=== PATIENT | female | born 1950 | race African-American/Black ===

== ENCOUNTER 2017-08-19 17:44 | Inpatient (IN) | payer MEDICARE, MEDICAID ==
[~2017-08-19] VITALS: Ht 147.3 cm; Wt 76.7 kg
[2017-08-19] MEDS ORDERED: LOSA50TA37 PO (18:02)
[2017-08-19] MEDS ORDERED: NITROGLYCERIN 400 MCG/SUBLINGUAL SPRAY 4.9 GM BOTTLE SL ONE (18:30)
[2017-08-19] MEDS ORDERED: NITROGLYCERIN 2% (1 GM=INCH) PACKET TP ONE (18:30)
[2017-08-19] MEDS: BUMETANIDE 0.25 MG/ML 4 ML VIAL IVP ONE ×2 (18:35→19:15)
[2017-08-19] MEDS: ASPIRIN 81 MG CHEWABLE TABLET PO ONE ×2 (18:35→19:15)
[2017-08-19] MEDS ORDERED: LORazepam 2 MG/ML VIAL ONE (18:42)
[2017-08-19] MEDS ORDERED: IPRATROPIUM BROMIDE 0.5 MG/2.5 ML NEB SOLUTION NEB ONE (18:45)
[2017-08-19] MEDS ORDERED: ALBUTEROL SULFATE 2.5 MG/0.5 ML NEB SOLUTION NEB ONE (18:45)
[2017-08-19] MEDS ORDERED: LORazepam 2 MG/ML VIAL IVP ONE (19:00)
[2017-08-19 19:13] LABS: ABG A-A DIFF O2 251.7 mmHg (10-20.0); ABG CARBOXYHEMOGLOBIN 0.5 % (0.0-1.5); ABG HCO3 20.3 mmol/L (22.0-26.0); ABG METHEMOGLOBIN 0.5 % (0.0-1.5); ABG OXYGEN CONTENT 18.6 mL/dL (15.0-23.0); ABG OXYGEN SATURATION 99.8 % (95.0-98.0); ABG OXYHEMOGLOBIN 98.8 % (94.0-100.0); ABG PCO2 49 mmHg (35-45); ABG PH 7.268 (7.35-7.450); ABG TOTAL HEMOGLOBIN 12.6 G/dL (12.0-18.0); PO2, ARTERIAL BG 413.7 mmHg (79.0-87.0); SOURCE, BLOOD GAS ARTERIAL; TEMPERATURE, FAHRENHEIT, BG 97.5 FAHREN (96.0-98.6)
[2017-08-19] MEDS: PROPOFOL 1000 MG/ISO-OSM 100 ML IV PRN ×2 (19:28→22:55)
[2017-08-19 19:34] LABS: SITE, BLOOD GAS RT RADIAL
[2017-08-19 19:35] LABS: PEEP,BG 5 cm H2O; SPONTANEOUS VT, BG 486 ml; VT, ABG 500 ml
[2017-08-19 19:43] LABS: BASOPHILS % (AUTO) 0.5 % (0.0-2.0); EOSINOPHILS % (AUTO) 0.5 % (1.0-6.0); HEMOGLOBIN 11.8 g/dL (12.0-16.0); LYMPHOCYTES # (AUTO) 1.2 K/uL (1.0-4.8); LYMPHOCYTES % (AUTO) 14.7 % (22.0-44.0); MEAN CORPUSCULAR HEMOGLOBIN 29.4 pg (26.0-34.0); MEAN CORPUSCULAR HGB CONC 32.8 G/dL (31.0-37.0); MEAN CORPUSCULAR VOLUME 90 fL (80-100); MONOCYTES # (AUTO) 0.2 K/uL (0.1-1.0); MONOCYTES % (AUTO) 2.7 % (2.0-9.0); NEUTROPHILS # (AUTO) 6.6 K/uL (1.8-7.7); NEUTROPHILS % (AUTO) 81.6 % (40.0-70.0); PLATELET COUNT (AUTO) 164 K/uL (150-450); RED BLOOD CELL COUNT(AUTO) 4.02 MIL/uL (4.00-5.20); RED CELL DISTRIBUTION WIDTH 15.3 % (11.5-14.5)
[2017-08-19 20:05] LABS: ANION GAP 10 mmol/L (8-16); CARBON DIOXIDE 28 mmol/L (22-29); CHLORIDE 104 mmol/L (98-107); CREATININE 0.91 mg/dL (0.60-1.30); GLOMERULAR FILTR. RATE CALC > 60 mL/min (>60); GLUCOSE,RANDOM 205 mg/dL (70-110); POTASSIUM 3.5 mmol/L (3.5-5.1); SODIUM SERUM 142 mmol/L (136-145); UREA NITROGEN, BLOOD 14 mg/dL (7-18)
[2017-08-19 20:09] LABS: B-TYPE NATRIURETIC PEPTIDE 623 pg/mL (0-100)
[2017-08-19] MEDS ORDERED: BUMETANIDE 0.25 MG/ML 4 ML VIAL IVP ONE (20:15)
[2017-08-19] MEDS ORDERED: MIDAZOLAM HCL 100 MG in DEXTROSE 5%-WATER 180 ML IV PRN ×2 (20:27→22:08)
[2017-08-19 20:30] LABS: ALANINE AMINOTRANSFERASE 37 U/L (12-78); ALBUMIN 3.8 g/dL (3.4-5.0); ALKALINE PHOSPHATASE 62 U/L (46-116); ASPARTATE AMINOTRANSFERASE 30 U/L (15-37); BILIRUBIN,TOTAL 0.9 mg/dL (0.1-1.0); CREATINE KINASE MB 3.1 ng/mL (0-5); CREATINE KINASE, TOTAL 177 U/L (26-192); TOTAL PROTEIN, SERUM 7.7 g/dL (6.4-8.2)
[2017-08-19] MEDS ORDERED: SODIUM CHLORIDE 0.9% 100 ML ONE (20:33)
[2017-08-19] MEDS ORDERED: IOVERSOL 350 MG/ML 100 ML VIAL ONE (20:33)
[2017-08-19] MEDS ORDERED: MIDAZOLAM HCL 5 MG/ML VIAL IVP ONE (20:45)
[2017-08-19 21:53] LABS: APPEARANCE,URINE TURBID (CLEAR); BILIRUBIN,URINE NEGATIVE (NEGATIVE); GLUCOSE, URINE (UA) NEGATIVE (NEGATIVE); KETONES,URINE NEGATIVE (NEGATIVE); LEUKOCYTE ESTERASE ,URINE TRACE (NEGATIVE); NITRATE,URINE POSITIVE (NEGATIVE); OCCULT BLOOD,URINE LARGE (NEGATIVE); PROTEIN,URINE SEE CONFIRM (NEGATIVE); UROBILINOGEN,URINE 0.2 mg/dL (<=1.0)
[2017-08-19 22:30] VITALS: BP 157/101
[2017-08-19] MEDS ORDERED: BISACODYL 10 MG RECTAL RECTAL SUPPOSITORY PR PRN (22:30)
[2017-08-19] MEDS ORDERED: ONDANSETRON HCL 4 MG/2 ML VIAL IVP PRN (22:30)
[2017-08-19] MEDS ORDERED: 0.9% SODIUM CHLORIDE 10 ML SYRINGE IVP PRN (22:30)
[2017-08-19 22:45] LABS: SULFOSALICYLIC ACID,URINE 4+ (Negative)
[2017-08-19 22:46] LABS: BACTERIA,URINE Moderate /HPF (None Seen)
[2017-08-19 22:47] LABS: AMORPHOUS SEDIMENT,UR Many /LPF (None Seen); HYALINE CASTS, URINE 0-2 /LPF (None Seen); SQUAMOUS EPITHELIAL CELL,UR Moderate /LPF (None Seen)
[2017-08-19 22:48] LABS: MUCUS,URINE Many LPF (None Seen)
[2017-08-19] MEDS: AZITHROMYCIN 500 MG/NS 250 ML IV SCH (22:56)
[2017-08-19] MEDS: CefTRIAXone SODIUM 1 GM in DEXTROSE 5%-WATER 10 ML IV SCH (22:56)
[2017-08-19] MEDS: HEPARIN SODIUM,PORCINE 5,000 UNITS/ML VIAL SQ SCH (22:58)
[2017-08-19] MEDS ORDERED: SODIUM CHLORIDE 0.9% 250 ML IV ONE (22:59)
[2017-08-19 23:32] LABS: SALICYLATE < 2.8 mg/dL (2.8-20.0)
[2017-08-20] VITALS: BP 120/86
[2017-08-20 01:01] LABS: AMPHET/METH SCREEN,URINE NEGATIVE (NEGATIVE); BARBITURATE SCREEN, URINE NEGATIVE (NEGATIVE); BENZODIAZEPINES SCREEN,URINE NEGATIVE (NEGATIVE); CANNABINOID SCREEN,URINE NEGATIVE (NEGATIVE); COCAINE SCREEN,URINE NEGATIVE (NEGATIVE); METHADONE SCREEN, URINE NEGATIVE (NEGATIVE); OPIATE SCREEN,URINE NEGATIVE (NEGATIVE)
[2017-08-20 01:06] LABS: PHENCYCLIDINE SCREEN,URINE NEGATIVE (NEGATIVE)
[2017-08-20] MEDS: PROPOFOL 1000 MG/ISO-OSM 100 ML IV PRN ×5 (02:36→22:52)
[2017-08-20 04:00] VITALS: BP 132/86
[2017-08-20 05:36] LABS: HEMOGLOBIN A1C 5.2 % (4.5-6.2)
[2017-08-20 06:01] LABS: BASOPHILS % (AUTO) 0.4 % (0.0-2.0); HEMATOCRIT 34.4 % (36-46); HEMOGLOBIN 11.5 g/dL (12.0-16.0); LYMPHOCYTES # (AUTO) 2.2 K/uL (1.0-4.8); LYMPHOCYTES % (AUTO) 27.8 % (22.0-44.0); MEAN CORPUSCULAR HEMOGLOBIN 29.6 pg (26.0-34.0); MEAN CORPUSCULAR HGB CONC 33.4 G/dL (31.0-37.0); MEAN CORPUSCULAR VOLUME 89 fL (80-100); MONOCYTES # (AUTO) 0.4 K/uL (0.1-1.0); MONOCYTES % (AUTO) 5.6 % (2.0-9.0); NEUTROPHILS # (AUTO) 5.1 K/uL (1.8-7.7); NEUTROPHILS % (AUTO) 65.2 % (40.0-70.0); PLATELET COUNT (AUTO) 166 K/uL (150-450); RED BLOOD CELL COUNT(AUTO) 3.88 MIL/uL (4.00-5.20); RED CELL DISTRIBUTION WIDTH 15.2 % (11.5-14.5)
[2017-08-20 06:02] LABS: ALANINE AMINOTRANSFERASE 33 U/L (12-78); ALBUMIN 3.6 g/dL (3.4-5.0); ALKALINE PHOSPHATASE 59 U/L (46-116); ANION GAP 13 mmol/L (8-16); ASPARTATE AMINOTRANSFERASE 29 U/L (15-37); BILIRUBIN,TOTAL 0.9 mg/dL (0.1-1.0); CALCIUM, TOTAL 8.8 mg/dL (8.8-10.5); CARBON DIOXIDE 25 mmol/L (22-29); CHLORIDE 105 mmol/L (98-107); CHOL/HDL RATIO 3.4 (3.9-5.7); CHOLESTEROL 190 mg/dL (131-200); CREATININE 0.66 mg/dL (0.60-1.30); GLOMERULAR FILTR. RATE CALC > 60 mL/min (>60); GLUCOSE,RANDOM 98 mg/dL (70-110); HDL CHOLESTEROL 56 mg/dL (40-60); LDL CHOL (CALC.) 113 mg/dL (0-130); PHOSPHORUS 3.1 mg/dL (2.5-4.9); POTASSIUM 3.1 mmol/L (3.5-5.1); SODIUM SERUM 143 mmol/L (136-145); TOTAL PROTEIN, SERUM 7.3 g/dL (6.4-8.2); TRIGLYCERIDES 104 mg/dL (15-150); UREA NITROGEN, BLOOD 13 mg/dL (7-18)
[2017-08-20 08:00] VITALS: BP 169/114
[2017-08-20] MEDS ORDERED: POTASSIUM CHLORIDE 20 MEQ ER TABLET PO PRN (08:15)
[2017-08-20] MEDS: POTASSIUM CHL 10 MEQ/WATER 50 ML IV PRN ×3 (08:37→12:57)
[2017-08-20] MEDS: PANTOPRAZOLE SODIUM 40 MG/VIAL IVP SCH (08:37)
[2017-08-20] MEDS: FUROSEMIDE 20 MG/2 ML VIAL IVP SCH ×2 (08:38→20:08)
[2017-08-20] MEDS: HEPARIN SODIUM,PORCINE 5,000 UNITS/ML VIAL SQ SCH ×2 (08:38→20:09)
[2017-08-20] MEDS: ASPIRIN 81 MG CHEWABLE TABLET PO SCH (08:38)
[2017-08-20 09:24] LABS: ABG A-A DIFF O2 138.7 mmHg (10-20.0); ABG CARBOXYHEMOGLOBIN 0.7 % (0.0-1.5); ABG HCO3 27.4 mmol/L (22.0-26.0); ABG METHEMOGLOBIN 0.3 % (0.0-1.5); ABG OXYGEN CONTENT 17.8 mL/dL (15.0-23.0); ABG OXYGEN SATURATION 98.4 % (95.0-98.0); ABG OXYHEMOGLOBIN 97.4 % (94.0-100.0); ABG PCO2 35 mmHg (35-45); ABG PH 7.492 (7.35-7.450); ABG TOTAL HEMOGLOBIN 12.9 G/dL (12.0-18.0); SITE, BLOOD GAS RT RADIAL; SOURCE, BLOOD GAS ARTERIAL; TEMPERATURE, FAHRENHEIT, BG 98.6 FAHREN (96.0-98.6)
[2017-08-20 09:25] LABS: O2 DEVICE,BLOOD GAS VENTILATOR (ROOM AIR); PEEP,BG 5 cm H2O; VT, ABG 500 ml
[2017-08-20] MEDS: LOSARTAN POTASSIUM 50 MG TABLET PO SCH (10:07)
[2017-08-20 12:00] VITALS: BP 170/115
[2017-08-20] MEDS ORDERED: METOPROLOL TARTRATE 25 MG TABLET PO SCH (13:15)
[2017-08-20] MEDS: HydrALAZINE HCL 20 MG/ML VIAL IVP PRN (13:53)
[2017-08-20 16:00] VITALS: BP 142/96
[2017-08-20] MEDS ORDERED: ETOMIDATE 2 MG/ML 10 ML VIAL IVP ONE (17:59)
[2017-08-20] MEDS ORDERED: SUCCINYLCHOLINE CHLORIDE 20 MG/ML 10 ML VIAL IVP ONE (17:59)
[2017-08-20 20:00] VITALS: BP 143/92
[2017-08-20] MEDS ORDERED: SODIUM CHLORIDE 0.9% 250 ML IV ONE (20:07)
[2017-08-20] MEDS: ACETAMINOPHEN 325 MG TABLET PO PRN (20:09)
[2017-08-20] MEDS: CARVEDILOL 12.5 MG TABLET PO SCH (20:09)
[2017-08-20] MEDS: CefTRIAXone SODIUM 1 GM in DEXTROSE 5%-WATER 10 ML IV SCH (23:18)
[2017-08-20] MEDS: AZITHROMYCIN 500 MG/NS 250 ML IV SCH (23:18)
[2017-08-21] VITALS (8 sets, daily range): BP systolic 106–165; BP diastolic 73–98
[2017-08-21] MEDS: ACETAMINOPHEN 325 MG TABLET PO PRN ×2 (00:36→17:40)
[2017-08-21] MEDS: PROPOFOL 1000 MG/ISO-OSM 100 ML IV PRN ×2 (03:36→08:08)
[2017-08-21 05:22] LABS: BASOPHILS % (AUTO) 0.4 % (0.0-2.0); EOSINOPHILS % (AUTO) 0.4 % (1.0-6.0); HEMATOCRIT 39.2 % (36-46); HEMOGLOBIN 12.9 g/dL (12.0-16.0); LYMPHOCYTES # (AUTO) 1.3 K/uL (1.0-4.8); MEAN CORPUSCULAR HEMOGLOBIN 29.3 pg (26.0-34.0); MEAN CORPUSCULAR VOLUME 89 fL (80-100); NEUTROPHILS # (AUTO) 8.6 K/uL (1.8-7.7); NEUTROPHILS % (AUTO) 78.2 % (40.0-70.0); RED BLOOD CELL COUNT(AUTO) 4.42 MIL/uL (4.00-5.20); RED CELL DISTRIBUTION WIDTH 15.5 % (11.5-14.5)
[2017-08-21 05:41] LABS: ALANINE AMINOTRANSFERASE 27 U/L (12-78); ALBUMIN 3.8 g/dL (3.4-5.0); ALKALINE PHOSPHATASE 63 U/L (46-116); ANION GAP 12 mmol/L (8-16); ASPARTATE AMINOTRANSFERASE 28 U/L (15-37); BILIRUBIN,TOTAL 1.1 mg/dL (0.1-1.0); CARBON DIOXIDE 27 mmol/L (22-29); CHLORIDE 103 mmol/L (98-107); GLOMERULAR FILTR. RATE CALC > 60 mL/min (>60); GLUCOSE,RANDOM 133 mg/dL (70-110); POTASSIUM 3.5 mmol/L (3.5-5.1); SODIUM SERUM 142 mmol/L (136-145); TOTAL PROTEIN, SERUM 7.6 g/dL (6.4-8.2); UREA NITROGEN, BLOOD 17 mg/dL (7-18)
[2017-08-21] MEDS: POTASSIUM CHL 10 MEQ/WATER 50 ML IV PRN ×3 (06:15→10:14)
[2017-08-21] MEDS ORDERED: HALOPERIDOL LACTATE 5 MG/ML VIAL IVP PRN (06:45)
[2017-08-21 07:24] LABS: PLATELET COUNT (AUTO) 126 K/uL (150-450)
[2017-08-21] MEDS: FUROSEMIDE 20 MG/2 ML VIAL IVP SCH ×2 (08:09→21:00)
[2017-08-21] MEDS: LOSARTAN POTASSIUM 50 MG TABLET PO SCH (08:09)
[2017-08-21] MEDS: HEPARIN SODIUM,PORCINE 5,000 UNITS/ML VIAL SQ SCH ×2 (08:09→20:59)
[2017-08-21] MEDS: PANTOPRAZOLE SODIUM 40 MG/VIAL IVP SCH (08:09)
[2017-08-21] MEDS: CARVEDILOL 12.5 MG TABLET PO SCH ×2 (08:09→20:59)
[2017-08-21] MEDS: ASPIRIN 81 MG CHEWABLE TABLET PO SCH (08:09)
[2017-08-21 12:19] LABS: ABG A-A DIFF O2 117.8 mmHg (10-20.0); ABG HCO3 25.5 mmol/L (22.0-26.0); ABG METHEMOGLOBIN 0.4 % (0.0-1.5); ABG OXYGEN CONTENT 16.8 mL/dL (15.0-23.0); ABG OXYGEN SATURATION 96.5 % (95.0-98.0); ABG OXYHEMOGLOBIN 95.1 % (94.0-100.0); ABG PCO2 38 mmHg (35-45); ABG PH 7.436 (7.35-7.450); ABG TOTAL HEMOGLOBIN 12.5 G/dL (12.0-18.0); SOURCE, BLOOD GAS ARTERIAL; TEMPERATURE, FAHRENHEIT, BG 98.9 FAHREN (96.0-98.6)
[2017-08-21 12:20] LABS: CPAP, BG 5 cm H2O; O2 DEVICE,BLOOD GAS VENTILATOR (ROOM AIR); PRESSURE SUPPORT, BG 8 cm H2O; SITE, BLOOD GAS RT RADIAL; VENT MODE, BG CPAP (ROOM AIR)
[2017-08-21 15:42] LABS: ABG A-A DIFF O2 143.1 mmHg (10-20.0); ABG BASE EXCESS 2.4 mmol/L (-2.0-3.0); ABG CARBOXYHEMOGLOBIN 1.1 % (0.0-1.5); ABG HCO3 26.4 mmol/L (22.0-26.0); ABG METHEMOGLOBIN 0.4 % (0.0-1.5); ABG OXYGEN CONTENT 16.3 mL/dL (15.0-23.0); ABG OXYHEMOGLOBIN 91.6 % (94.0-100.0); ABG PCO2 41 mmHg (35-45); ABG PH 7.432 (7.35-7.450); ABG TOTAL HEMOGLOBIN 12.6 G/dL (12.0-18.0); SOURCE, BLOOD GAS ARTERIAL; TEMPERATURE, FAHRENHEIT, BG 98.6 FAHREN (96.0-98.6)
[2017-08-21 15:43] LABS: O2 DEVICE,BLOOD GAS CANNULA (ROOM AIR); SITE, BLOOD GAS RT RADIAL
[2017-08-21] MEDS: IPRATROPIUM BROMIDE 0.5 MG/2.5 ML NEB SOLUTION NEB PRN (20:10)
[2017-08-21] MEDS: ALBUTEROL SULFATE 2.5 MG/0.5 ML NEB SOLUTION NEB PRN (20:10)
[2017-08-21] MEDS: CefTRIAXone SODIUM 1 GM in DEXTROSE 5%-WATER 10 ML IV SCH (22:47)
[2017-08-21 23:22] LABS: GLUCOSE,POINT OF CARE 152 MG/DL (70-110)
[2017-08-21] MEDS ORDERED: SODIUM CHLORIDE 0.9% 250 ML IV ONE (23:32)
[2017-08-21] MEDS: AZITHROMYCIN 500 MG/NS 250 ML IV SCH (23:44)
[2017-08-22] VITALS: BP 134/81
[2017-08-22 04:00] VITALS: BP 132/80
[2017-08-22 06:36] LABS: HEMATOCRIT 34.7 % (36-46); HEMOGLOBIN 11.3 g/dL (12.0-16.0); MEAN CORPUSCULAR HEMOGLOBIN 29.2 pg (26.0-34.0); MEAN CORPUSCULAR HGB CONC 32.7 G/dL (31.0-37.0); MEAN CORPUSCULAR VOLUME 89 fL (80-100); PLATELET COUNT (AUTO) 137 K/uL (150-450); RED BLOOD CELL COUNT(AUTO) 3.88 MIL/uL (4.00-5.20); RED CELL DISTRIBUTION WIDTH 15.5 % (11.5-14.5)
[2017-08-22 06:55] LABS: ANION GAP 11 mmol/L (8-16); CALCIUM, TOTAL 9.3 mg/dL (8.8-10.5); CARBON DIOXIDE 27 mmol/L (22-29); CHLORIDE 105 mmol/L (98-107); CREATININE 0.78 mg/dL (0.60-1.30); GLOMERULAR FILTR. RATE CALC > 60 mL/min (>60); GLUCOSE,RANDOM 134 mg/dL (70-110); POTASSIUM 3.4 mmol/L (3.5-5.1); SODIUM SERUM 143 mmol/L (136-145); UREA NITROGEN, BLOOD 20 mg/dL (7-18)
[2017-08-22] MEDS: HydrALAZINE HCL 20 MG/ML VIAL IVP PRN (07:19)
[2017-08-22] MEDS: POTASSIUM CHL 10 MEQ/WATER 50 ML IV PRN (07:19)
[2017-08-22] MEDS ORDERED: POTASSIUM CHLORIDE 10% 40 MEQ/30 ML LIQUID UDCUP PO PRN (08:30)
[2017-08-22] MEDS ORDERED: POTASSIUM CHLORIDE 10% 40 MEQ/30 ML LIQUID UDCUP NG PRN (08:30)
[2017-08-22 08:52] LABS: BAND NEUTROPHILS % (MANUAL) 1 % (0-5); LYMPHOCYTES % (MANUAL) 19 % (22-44); MONOCYTES % (MANUAL) 6 % (2-9); SEGMENTED NEUTROPHILS % 74 % (40-70)
[2017-08-22] MEDS: FUROSEMIDE 20 MG/2 ML VIAL IVP SCH ×2 (09:05→20:23)
[2017-08-22] MEDS: PANTOPRAZOLE SODIUM 40 MG/VIAL IVP SCH (09:05)
[2017-08-22] MEDS: ASPIRIN 81 MG CHEWABLE TABLET PO SCH (09:06)
[2017-08-22] MEDS: CARVEDILOL 12.5 MG TABLET PO SCH ×2 (09:06→20:24)
[2017-08-22] MEDS: HEPARIN SODIUM,PORCINE 5,000 UNITS/ML VIAL SQ SCH ×2 (09:07→20:25)
[2017-08-22] MEDS: LOSARTAN POTASSIUM 50 MG TABLET PO SCH (09:07)
[2017-08-22 14:03] VITALS: BP 151/90
[2017-08-22 15:23] VITALS: BP 149/92
[2017-08-22] MEDS: ALBUTEROL SULFATE 2.5 MG/0.5 ML NEB SOLUTION NEB PRN ×2 (16:22→19:00)
[2017-08-22] MEDS: IPRATROPIUM BROMIDE 0.5 MG/2.5 ML NEB SOLUTION NEB PRN ×2 (16:22→19:00)
[2017-08-22 19:31] VITALS: BP 143/89
[2017-08-22] MEDS: CefTRIAXone SODIUM 1 GM in DEXTROSE 5%-WATER 10 ML IV SCH (23:57)
[2017-08-23] MEDS ORDERED: 0.9% SODIUM CHLORIDE 5 ML NEB SOLUTION NEB ONE
[2017-08-23] MEDS: AZITHROMYCIN 500 MG/NS 250 ML IV SCH (00:03)
[2017-08-23] MEDS: ALBUTEROL SULFATE 2.5 MG/0.5 ML NEB SOLUTION NEB PRN (00:06)
[2017-08-23] MEDS: IPRATROPIUM BROMIDE 0.5 MG/2.5 ML NEB SOLUTION NEB PRN (00:07)
[2017-08-23 00:16] VITALS: BP 132/76
[2017-08-23 05:00] VITALS: BP 137/88
[2017-08-23 07:15] VITALS: BP 141/77
[2017-08-23] MEDS: ASPIRIN 81 MG CHEWABLE TABLET PO SCH (09:01)
[2017-08-23] MEDS: CARVEDILOL 12.5 MG TABLET PO SCH ×2 (09:01→20:08)
[2017-08-23] MEDS: HEPARIN SODIUM,PORCINE 5,000 UNITS/ML VIAL SQ SCH ×2 (09:01→20:09)
[2017-08-23] MEDS: PANTOPRAZOLE SODIUM 40 MG/VIAL IVP SCH (09:02)
[2017-08-23] MEDS: FUROSEMIDE 20 MG/2 ML VIAL IVP SCH ×2 (09:02→20:09)
[2017-08-23 10:23] LABS: LEGIONELLA PNEUMO AG URINE Negative (Negative); ORGANISM ID Not indicated.; S PNEUMO SOURCE Urine; STREP PNEUMONIAE AG URINE Negative (Negative); STREP.PNEUMO BODY FLUID CULT. Not Indicated
[2017-08-23] MEDS: LOSARTAN POTASSIUM 50 MG TABLET PO SCH (10:59)
[2017-08-23 11:48] VITALS: BP 113/72
[2017-08-23 19:55] VITALS: BP 126/73
[2017-08-24] VITALS (7 sets, daily range): BP systolic 114–139; BP diastolic 59–82
[2017-08-24] MEDS: CefTRIAXone SODIUM 1 GM in DEXTROSE 5%-WATER 10 ML IV SCH (00:25)
[2017-08-24] MEDS: AZITHROMYCIN 500 MG/NS 250 ML IV SCH (00:26)
[2017-08-24] MEDS: ASPIRIN 81 MG CHEWABLE TABLET PO SCH (08:28)
[2017-08-24] MEDS: FUROSEMIDE 20 MG/2 ML VIAL IVP SCH ×2 (08:29→22:01)
[2017-08-24] MEDS: CARVEDILOL 12.5 MG TABLET PO SCH ×2 (08:29→22:01)
[2017-08-24] MEDS: PANTOPRAZOLE SODIUM 40 MG/VIAL IVP SCH (08:29)
[2017-08-24] MEDS: HEPARIN SODIUM,PORCINE 5,000 UNITS/ML VIAL SQ SCH ×2 (08:29→22:00)
[2017-08-24] MEDS: LOSARTAN POTASSIUM 50 MG TABLET PO SCH (10:12)
[2017-08-25] VITALS (15 sets, daily range): BP systolic 123–184; BP diastolic 66–102
[2017-08-25 06:50] LABS: BASOPHILS % (AUTO) 0.8 % (0.0-2.0); EOSINOPHILS % (AUTO) 2.1 % (1.0-6.0); HEMATOCRIT 31.4 % (36-46); HEMOGLOBIN 10.1 g/dL (12.0-16.0); LYMPHOCYTES # (AUTO) 1.9 K/uL (1.0-4.8); MEAN CORPUSCULAR HEMOGLOBIN 28.8 pg (26.0-34.0); MEAN CORPUSCULAR HGB CONC 32.2 G/dL (31.0-37.0); MEAN CORPUSCULAR VOLUME 89 fL (80-100); MONOCYTES # (AUTO) 0.8 K/uL (0.1-1.0); MONOCYTES % (AUTO) 8.6 % (2.0-9.0); NEUTROPHILS # (AUTO) 5.8 K/uL (1.8-7.7); NEUTROPHILS % (AUTO) 66.5 % (40.0-70.0); PLATELET COUNT (AUTO) 177 K/uL (150-450); RED BLOOD CELL COUNT(AUTO) 3.52 MIL/uL (4.00-5.20); RED CELL DISTRIBUTION WIDTH 15.3 % (11.5-14.5)
[2017-08-25 06:56] LABS: PROTHROMBIN TIME 10.3 SEC (9.4-11.6)
[2017-08-25 06:59] LABS: ANION GAP 7 mmol/L (8-16); CARBON DIOXIDE 31 mmol/L (22-29); CHLORIDE 103 mmol/L (98-107); GLOMERULAR FILTR. RATE CALC > 60 mL/min (>60); GLUCOSE,RANDOM 108 mg/dL (70-110); POTASSIUM 3.5 mmol/L (3.5-5.1); SODIUM SERUM 141 mmol/L (136-145); UREA NITROGEN, BLOOD 29 mg/dL (7-18)
[2017-08-25] MEDS ORDERED: DEXTROSE 5%-0.45% SODIUM CHL 1,000 ML IV ONE (08:15)
[2017-08-25] MEDS: HEPARIN SODIUM,PORCINE 5,000 UNITS/ML VIAL SQ SCH ×2 (09:00→21:22)
[2017-08-25] MEDS ORDERED: LIDOCAINE HCL/PF 1% 30 ML VIAL ONE (12:13)
[2017-08-25] MEDS ORDERED: SODIUM BICARBONATE 50 MEQ/50 ML VIAL ONE (12:13)
[2017-08-25] MEDS ORDERED: IOHEXOL 300 MG/ML 150 ML VIAL ONE (12:13)
[2017-08-25] MEDS ORDERED: FentaNYL CITRATE-PF 100 MCG/2 ML VIAL ONE (12:39)
[2017-08-25] MEDS ORDERED: MIDAZOLAM HCL 2 MG/2 ML VIAL ONE (12:40)
[2017-08-25] MEDS ORDERED: VERAPAMIL HCL 2.5 MG/ML 2 ML VIAL ONE (12:40)
[2017-08-25] MEDS ORDERED: NITROGLYCERIN 50 MG/D5% WATER 0 ML ONE (12:40)
[2017-08-25] MEDS ORDERED: 0.9% SODIUM CHLORIDE 10 ML SYRINGE IVP ONE (12:41)
[2017-08-25] MEDS ORDERED: IOHEXOL 300 MG/ML 100 ML VIAL ONE (12:43)
[2017-08-25] MEDS ORDERED: SODIUM CHLORIDE 0.9% 500 ML IV ONE (13:00)
[2017-08-25] MEDS ORDERED: LIDOCAINE 1% 30 ML/SOD BICARB 8.4% 4 ML SQ ONE (13:03)
[2017-08-25] MEDS ORDERED: HEPARIN SODIUM 2,000 UNITS in HEPARIN SODIUM 1000 UNITS/NS 1,000 ML IARTER ONE (13:04)
[2017-08-25] MEDS ORDERED: IOHEXOL 300 MG/ML 150 ML VIAL IARTER ONE (13:05)
[2017-08-25] MEDS: AmLODIPine BESYLATE 5 MG TABLET PO SCH (14:17)
[2017-08-25] MEDS: PANTOPRAZOLE SODIUM 40 MG/VIAL IVP SCH (14:17)
[2017-08-25] MEDS: LOSARTAN POTASSIUM 50 MG TABLET PO SCH (14:17)
[2017-08-25] MEDS: FUROSEMIDE 20 MG/2 ML VIAL IVP SCH ×2 (14:17→21:53)
[2017-08-25] MEDS: ASPIRIN 81 MG CHEWABLE TABLET PO SCH (14:17)
[2017-08-25] MEDS: CARVEDILOL 25 MG TABLET PO SCH (21:53)
[2017-08-26] VITALS (8 sets, daily range): BP systolic 104–134; BP diastolic 59–91
[2017-08-26 07:25] LABS: BASOPHILS % (AUTO) 1.2 % (0.0-2.0); EOSINOPHILS % (AUTO) 2.9 % (1.0-6.0); HEMATOCRIT 30.1 % (36-46); LYMPHOCYTES # (AUTO) 1.5 K/uL (1.0-4.8); LYMPHOCYTES % (AUTO) 21.1 % (22.0-44.0); MEAN CORPUSCULAR HEMOGLOBIN 29.6 pg (26.0-34.0); MEAN CORPUSCULAR HGB CONC 33.1 G/dL (31.0-37.0); MEAN CORPUSCULAR VOLUME 89 fL (80-100); MONOCYTES # (AUTO) 0.7 K/uL (0.1-1.0); NEUTROPHILS # (AUTO) 4.5 K/uL (1.8-7.7); NEUTROPHILS % (AUTO) 64.8 % (40.0-70.0); PLATELET COUNT (AUTO) 178 K/uL (150-450); RED BLOOD CELL COUNT(AUTO) 3.37 MIL/uL (4.00-5.20); RED CELL DISTRIBUTION WIDTH 15.1 % (11.5-14.5)
[2017-08-26 07:36] LABS: ANION GAP 7 mmol/L (8-16); CALCIUM, TOTAL 8.6 mg/dL (8.8-10.5); CARBON DIOXIDE 31 mmol/L (22-29); CHLORIDE 103 mmol/L (98-107); CREATININE 0.77 mg/dL (0.60-1.30); GLOMERULAR FILTR. RATE CALC > 60 mL/min (>60); GLUCOSE,RANDOM 125 mg/dL (70-110); POTASSIUM 3.3 mmol/L (3.5-5.1); SODIUM SERUM 141 mmol/L (136-145); UREA NITROGEN, BLOOD 21 mg/dL (7-18)
[2017-08-26] MEDS: HEPARIN SODIUM,PORCINE 5,000 UNITS/ML VIAL SQ SCH ×2 (08:00→21:25)
[2017-08-26] MEDS: FUROSEMIDE 20 MG/2 ML VIAL IVP SCH ×2 (08:00→21:25)
[2017-08-26] MEDS: CARVEDILOL 25 MG TABLET PO SCH ×2 (08:00→21:25)
[2017-08-26] MEDS: PANTOPRAZOLE SODIUM 40 MG/VIAL IVP SCH (08:00)
[2017-08-26] MEDS: ACETAMINOPHEN 325 MG TABLET PO PRN (08:00)
[2017-08-26] MEDS: AmLODIPine BESYLATE 5 MG TABLET PO SCH (08:00)
[2017-08-26] MEDS: ASPIRIN 81 MG CHEWABLE TABLET PO SCH (08:01)
[2017-08-26] MEDS: LOSARTAN POTASSIUM 50 MG TABLET PO SCH (08:01)
[2017-08-26] MEDS ORDERED: POTASSIUM CHLORIDE 20 MEQ ER TABLET PO PRN ×2 (08:15)
[2017-08-26] MEDS: SPIRONOLACTONE 25 MG TABLET PO SCH (12:30)
[2017-08-27 04:50] VITALS: BP 118/69
[2017-08-27 06:25] LABS: EOSINOPHILS % (AUTO) 3.9 % (1.0-6.0); HEMATOCRIT 29.7 % (36-46); HEMOGLOBIN 9.8 g/dL (12.0-16.0); LYMPHOCYTES # (AUTO) 1.6 K/uL (1.0-4.8); LYMPHOCYTES % (AUTO) 24.1 % (22.0-44.0); MEAN CORPUSCULAR HEMOGLOBIN 29.6 pg (26.0-34.0); MEAN CORPUSCULAR HGB CONC 33.1 G/dL (31.0-37.0); MEAN CORPUSCULAR VOLUME 89 fL (80-100); MONOCYTES # (AUTO) 0.6 K/uL (0.1-1.0); MONOCYTES % (AUTO) 9.7 % (2.0-9.0); NEUTROPHILS # (AUTO) 4.1 K/uL (1.8-7.7); NEUTROPHILS % (AUTO) 61.3 % (40.0-70.0); PLATELET COUNT (AUTO) 204 K/uL (150-450); RED BLOOD CELL COUNT(AUTO) 3.32 MIL/uL (4.00-5.20); RED CELL DISTRIBUTION WIDTH 15.2 % (11.5-14.5)
[2017-08-27 06:39] LABS: ALANINE AMINOTRANSFERASE 64 U/L (12-78); ALBUMIN 2.9 g/dL (3.4-5.0); ALKALINE PHOSPHATASE 67 U/L (46-116); ANION GAP 6 mmol/L (8-16); ASPARTATE AMINOTRANSFERASE 30 U/L (15-37); BILIRUBIN,TOTAL 0.6 mg/dL (0.1-1.0); CALCIUM, TOTAL 8.9 mg/dL (8.8-10.5); CARBON DIOXIDE 31 mmol/L (22-29); CHLORIDE 105 mmol/L (98-107); GLOMERULAR FILTR. RATE CALC > 60 mL/min (>60); GLUCOSE,RANDOM 112 mg/dL (70-110); SODIUM SERUM 142 mmol/L (136-145); TOTAL PROTEIN, SERUM 7.3 g/dL (6.4-8.2); UREA NITROGEN, BLOOD 17 mg/dL (7-18)
[2017-08-27 07:12] VITALS: BP 117/74
[2017-08-27] MEDS: LOSARTAN POTASSIUM 50 MG TABLET PO SCH (09:02)
[2017-08-27] MEDS: CARVEDILOL 25 MG TABLET PO SCH ×2 (09:02→21:17)
[2017-08-27] MEDS: SPIRONOLACTONE 25 MG TABLET PO SCH (09:02)
[2017-08-27] MEDS: AmLODIPine BESYLATE 5 MG TABLET PO SCH (09:02)
[2017-08-27] MEDS: HEPARIN SODIUM,PORCINE 5,000 UNITS/ML VIAL SQ SCH ×2 (09:02→21:16)
[2017-08-27] MEDS: ASPIRIN 81 MG CHEWABLE TABLET PO SCH (09:02)
[2017-08-27] MEDS: FUROSEMIDE 20 MG/2 ML VIAL IVP SCH ×2 (09:03→21:17)
[2017-08-27] MEDS: PANTOPRAZOLE SODIUM 40 MG/VIAL IVP SCH (09:03)
[2017-08-27 11:34] VITALS: BP 108/69
[2017-08-27] MEDS: NYSTATIN 500,000 UNITS/5 ML SUSPENSION UDCUP PO SCH ×2 (13:51→17:47)
[2017-08-27 16:19] VITALS: BP 117/76
[2017-08-27 19:08] VITALS: BP 141/58
[2017-08-28 00:02] VITALS: BP 132/61
[2017-08-28] MEDS: NYSTATIN 500,000 UNITS/5 ML SUSPENSION UDCUP PO SCH ×4 (00:54→18:07)
[2017-08-28 03:51] VITALS: BP 127/65
[2017-08-28 06:41] LABS: EOSINOPHILS % (AUTO) 4.3 % (1.0-6.0); HEMATOCRIT 31.3 % (36-46); HEMOGLOBIN 10.4 g/dL (12.0-16.0); LYMPHOCYTES # (AUTO) 1.9 K/uL (1.0-4.8); MEAN CORPUSCULAR HEMOGLOBIN 29.4 pg (26.0-34.0); MEAN CORPUSCULAR HGB CONC 33.1 G/dL (31.0-37.0); MEAN CORPUSCULAR VOLUME 89 fL (80-100); MONOCYTES # (AUTO) 0.6 K/uL (0.1-1.0); MONOCYTES % (AUTO) 9.4 % (2.0-9.0); NEUTROPHILS # (AUTO) 3.8 K/uL (1.8-7.7); NEUTROPHILS % (AUTO) 57.3 % (40.0-70.0); PLATELET COUNT (AUTO) 232 K/uL (150-450); RED BLOOD CELL COUNT(AUTO) 3.52 MIL/uL (4.00-5.20); RED CELL DISTRIBUTION WIDTH 14.8 % (11.5-14.5)
[2017-08-28 07:08] LABS: ALANINE AMINOTRANSFERASE 55 U/L (12-78); ALBUMIN 3.2 g/dL (3.4-5.0); ALKALINE PHOSPHATASE 70 U/L (46-116); ANION GAP 7 mmol/L (8-16); ASPARTATE AMINOTRANSFERASE 25 U/L (15-37); BILIRUBIN,TOTAL 0.5 mg/dL (0.1-1.0); CALCIUM, TOTAL 9.1 mg/dL (8.8-10.5); CARBON DIOXIDE 32 mmol/L (22-29); CHLORIDE 102 mmol/L (98-107); CREATININE 0.84 mg/dL (0.60-1.30); GLOMERULAR FILTR. RATE CALC > 60 mL/min (>60); GLUCOSE,RANDOM 106 mg/dL (70-110); POTASSIUM 3.7 mmol/L (3.5-5.1); SODIUM SERUM 141 mmol/L (136-145); TOTAL PROTEIN, SERUM 7.8 g/dL (6.4-8.2); UREA NITROGEN, BLOOD 17 mg/dL (7-18)
[2017-08-28] MEDS: FUROSEMIDE 20 MG/2 ML VIAL IVP SCH ×2 (09:00→20:37)
[2017-08-28] MEDS: HEPARIN SODIUM,PORCINE 5,000 UNITS/ML VIAL SQ SCH ×2 (09:00→20:37)
[2017-08-28] MEDS: AmLODIPine BESYLATE 5 MG TABLET PO SCH (09:31)
[2017-08-28] MEDS: PANTOPRAZOLE SODIUM 40 MG/VIAL IVP SCH (09:31)
[2017-08-28] MEDS: SPIRONOLACTONE 25 MG TABLET PO SCH (09:32)
[2017-08-28] MEDS: LOSARTAN POTASSIUM 50 MG TABLET PO SCH (09:32)
[2017-08-28] MEDS: ASPIRIN 81 MG CHEWABLE TABLET PO SCH (09:32)
[2017-08-28] MEDS: CARVEDILOL 25 MG TABLET PO SCH ×2 (09:32→20:37)
[2017-08-28 12:01] VITALS: BP 110/70
[2017-08-28 16:00] VITALS: BP 126/62
[2017-08-28 20:00] VITALS: BP 133/83
[2017-08-28 23:33] VITALS: BP 121/75
[2017-08-29] MEDS: NYSTATIN 500,000 UNITS/5 ML SUSPENSION UDCUP PO SCH ×3 (00:30→12:00)
[2017-08-29 04:15] VITALS: BP 144/80
[2017-08-29 07:14] VITALS: BP 126/77
[2017-08-29] MEDS: LOSARTAN POTASSIUM 50 MG TABLET PO SCH (08:35)
[2017-08-29] MEDS: HEPARIN SODIUM,PORCINE 5,000 UNITS/ML VIAL SQ SCH (08:35)
[2017-08-29] MEDS: ASPIRIN 81 MG CHEWABLE TABLET PO SCH (08:35)
[2017-08-29] MEDS: CARVEDILOL 25 MG TABLET PO SCH (08:35)
[2017-08-29] MEDS: AmLODIPine BESYLATE 5 MG TABLET PO SCH (08:35)
[2017-08-29] MEDS: PANTOPRAZOLE SODIUM 40 MG/VIAL IVP SCH (08:36)
[2017-08-29] MEDS: SPIRONOLACTONE 25 MG TABLET PO SCH (08:38)
[2017-08-29] MEDS: FUROSEMIDE 20 MG/2 ML VIAL IVP SCH (08:38)
[2017-08-29 11:44] VITALS: BP 105/59
[2017-08-29] MEDS ORDERED: ATOR20TA86 PO (14:38)
[2017-08-29] MEDS ORDERED: SPIR25 PO (14:40)
[2017-08-29] MEDS ORDERED: CARV25 PO (14:41)
[2017-08-29] MEDS ORDERED: FURO20 PO (14:41)
[2017-08-29] MEDS ORDERED: ASPI81TA39 PO (14:41)
[2017-08-29] MEDS ORDERED: KDUR10 PO (14:42)
[2017-08-29 15:13] VITALS: BP 130/78
== END 2017-08-29 17:00 | disposition home or self-care (01) | DRG 208 ==
LOC: EMS 17:45 → ICU 20:30 → 5N 08-22 13:45
PROVIDERS: ADMIT Internal Medicine; ATTEND Internal Medicine
PROC: 5A1945Z Respiratory Ventilation, 24-96 Consecutive Hours (ICD-10-PCS; principal; 2017-08-19)
PROC: 0BH17EZ Insertion of Endotracheal Airway into Trachea, Via Natural or Artificial Opening (ICD-10-PCS; 2017-08-19)
PROC: 4A023N7 Measurement of Cardiac Sampling and Pressure, Left Heart, Percutaneous Approach (ICD-10-PCS; 2017-08-25)
PROC: B2111ZZ Fluoroscopy of Multiple Coronary Arteries using Low Osmolar Contrast (ICD-10-PCS; 2017-08-25)
PROC: B2151ZZ Fluoroscopy of Left Heart using Low Osmolar Contrast (ICD-10-PCS; 2017-08-25)
DX: J96.01 Acute respiratory failure with hypoxia (principal); I50.21 Acute systolic (congestive) heart failure; Z99.11 Dependence on respirator [ventilator] status; J18.9 Pneumonia, unspecified organism; B37.0 Candidal stomatitis; I11.0 Hypertensive heart disease with heart failure; I42.0 Dilated cardiomyopathy; I20.0 Unstable angina; N39.0 Urinary tract infection, site not specified; E87.6 Hypokalemia; Z79.82 Long term (current) use of aspirin; J45.909 Unspecified asthma, uncomplicated; D64.9 Anemia, unspecified; R73.9 Hyperglycemia, unspecified
CPT/HCPCS: 31500; 71275; 80307; 82805; 82962; 83036; 83735; 84100; 84132; 84145; 85007; 85379; 87040; 87070; 87081; 87086; 87205; 87449; 87798; 87899; 92507; 92526; 92610; 93005; 93306; 93970; 94002; 94003; 94640; 96365; 96375; 97110; 97116; 97162; 97166; 97530; 97535; 99291; C9113; G0480; J0330; J0360; J0456; J0696; J1630; J1644; J1940; J2060; J2250; J2704; J3010; J3480; J3490; J7050; J7060; Q9967